=== PATIENT | female | born 1960 | race Caucasian/White ===

== ENCOUNTER 2023-09-23 13:37 | Outpatient (CLI) | payer BC | END 2023-09-23 23:59 | disposition home or self-care (01) | LOC: MRI 13:37 | PROVIDERS: ATTEND Podiatrist Foot & Ankle Surgery | DX: S91.012A Laceration without foreign body, left ankle, initial encounter (principal); M77.31 Calcaneal spur, right foot; M21.42 Flat foot [pes planus] (acquired), left foot; M19.072 Primary osteoarthritis, left ankle and foot; M25.772 Osteophyte, left ankle; M79.672 Pain in left foot; X58.XXXA Exposure to other specified factors, initial encounter; Y93.89 Activity, other specified; Y92.89 Other specified places as the place of occurrence of the external cause; Y99.8 Other external cause status | CPT/HCPCS: 73721 ==

== ENCOUNTER 2024-03-05 07:05 | Inpatient (IN) | payer BC, OTHER ==
[2024-02-27 15:14] LABS: BILIRUBIN,URINE NEGATIVE (Neg); CLARITY,URINE SLIGHTLY CLOUDY (Clear); COLOR,URINE YELLOW (Yellow); GLUCOSE, URINE NEGATIVE (Neg); KETONES,URINE NEGATIVE (Neg); LEUKOCYTE ESTERASE ,URINE NEGATIVE (Neg); NITRITES, URINE NEGATIVE (Neg); OCCULT BLOOD,URINE TRACE-INTACT (Neg); PH,URINE 5.5 (4.8-8.0); PROTEIN,URINE NEGATIVE (Neg); UROBILINOGEN,URINE 0.2 E.U/dL (0.2-1.0)
[2024-02-27 15:17] LABS: BASOPHILS % (AUTO) 0.5 % (0-1); EOSINOPHILS # (AUTO) 0.1 X10'3 (0-0.9); EOSINOPHILS % (AUTO) 1.7 % (0-6); LYMPHOCYTES # (AUTO) 2.1 X10'3 (1.1-4.8); LYMPHOCYTES % (AUTO) 25.8 % (21-51); MEAN CORPUSCULAR HEMOGLOBIN 28.4 PG (27.0-31.0); MEAN CORPUSCULAR HGB CONC 33.2 g/dL (33.0-36.5); MEAN CORPUSCULAR VOLUME 85.7 FL (78-98); MEAN PLATELET VOLUME 7.1 FL (7.4-10.4); MONOCYTES # (AUTO) 0.5 X10'3 (0-0.9); MONOCYTES % (AUTO) 6.6 % (2-12); NEUTROPHILS # (AUTO) 5.5 X10'3 (1.8-7.7); NEUTROPHILS % (AUTO) 65.4 % (42-75); PRE OP HEMATOCRIT 38.9 % (35.0-45.0); PRE OP HEMOGLOBIN 12.9 g/dL (12.0-16.0); PRE OP PLATELET COUNT 349 X10'3 (140-440); PRE OP WHITE BLOOD COUNT 8.3 10'3 (4.8-10.8); RED BLOOD COUNT 4.54 X10'6 (4.20-5.60); RED CELL DISTRIBUTION WIDTH 15.2 % (11.5-14.5)
[2024-02-27 15:27] LABS: UA COLLECTION TYPE CLN CATCH MIDSTREAM
[2024-02-27 15:28] LABS: ALBUMIN 3.4 G/DL (3.4-5.0); ALBUMIN/GLOBULIN RATIO 0.8 (1.1-1.5); ALKALINE PHOSPHATASE 91 IU/L (46-116); BLOOD UREA NITROGEN 20 MG/DL (7-18); BUN/CREATININE RATIO 26.3 (10.0-20.0); CHLORIDE 105 MMOL/L (99-107); CREATININE 0.76 MG/DL (0.40-0.90); PRE OP ALT 31 U/L (30-65); PRE OP ANION GAP 7 (8-16); PRE OP AST 31 U/L (10-37); PRE OP BILIRUB, TOTAL 0.3 MG/DL (0.0-1.0); PRE OP GLUCOSE 95 MG/DL (70-104); PRE OP POTASSIUM 4.3 MMOL/L (3.4-5.1); PRE OP SODIUM 142 MMOL/L (135-145); TOTAL CARBON DIOXIDE 30.1 MMOL/L (24-32); TOTAL PROTEIN 7.9 G/DL (6.4-8.2); eGFR 77 ML/MIN
[2024-02-27 15:28] LABS: MUCUS STRANDS FEW /LPF (Neg); SQUAMOUS EPITHELIAL CELL,UR MANY /LPF (FEW)
[2024-02-27 15:29] LABS: BACTERIA,URINE 1+ /HPF (Neg); RBC,URINE 0-2 /HPF (0-2); WBC,URINE 0-4 /HPF (0-4)
[2024-03-05] VITALS (31 sets, daily range): BP systolic 119–164; BP diastolic 67–94; PULSE 60–118; RESP 12–30; TEMP 96.7–98.6; O2SAT 88–98
[~2024-03-05] VITALS: Ht 162.6 cm; Wt 120.5 kg
[~2024-03-05 07:05] MED LIST: NO HOME MEDS
[2024-03-05] MEDS: famotidine 20mg tablet PO ONE (07:58)
[2024-03-05] MEDS: vancomycin 1,500 MG in NS 300ml IV soln IV ONE (07:58)
[2024-03-05] MEDS: ringers solution, lacted 1,000 ML IV SCH ×2 (07:58→16:42)
[2024-03-05] MEDS: scopolamine 1MG/72H patch 1 PATCH PATCH.TD.3 TD ONE (09:49)
[2024-03-05] MEDS ORDERED: sevoflurane 250ml liquid IH ONE (09:52)
[2024-03-05] MEDS ORDERED: midazolam 1 mg/ML 2ml injection ONE (10:06)
[2024-03-05] MEDS ORDERED: fentaNYL /PF 50mcg/ml 5ml ampule ONE (10:10)
[2024-03-05] MEDS ORDERED: hydrALAZINE 20mg/ml inj. IV PRN (10:40)
[2024-03-05] MEDS ORDERED: morphine 4 MG/ML inj SYRINge IV PRN (10:40)
[2024-03-05] MEDS ORDERED: labetalol 20mg/4ml (5mg/ml) syringe IV PRN (10:40)
[2024-03-05] MEDS ORDERED: LIDOcaine 2% (20mg/ml) 5ml vial ONE (10:46)
[2024-03-05] MEDS ORDERED: ROPIVAcaine 0.5% (5mg/ml) 30ml vial ONE (10:46)
[2024-03-05] MEDS ORDERED: ondansetron/PF 4mg/2ml inj ONE (10:46)
[2024-03-05] MEDS ORDERED: propofol inj 20 ML IV ONE (10:46)
[2024-03-05] MEDS ORDERED: 0.9 % SODIUM CHLORIDE 10 ML VIAL ONE ×2 (10:46)
[2024-03-05] MEDS ORDERED: ePHEDrine 50MG/ML INJ. ONE (10:47)
[2024-03-05] MEDS: bacitracin 15gm ointment TP ONE ×2 (12:45→16:41)
[2024-03-05] MEDS: HYDROmorphone/PF 0.2 MG/ML SYRINGE IV PRN ×2 (13:28→14:01)
[2024-03-05] MEDS ORDERED: naloxone 0.4 mg/ml inj IV PRN ×2 (13:30→15:00)
[2024-03-05] MEDS ORDERED: magnesium hydroxide 30ml (MOM) UD suspension PO PRN (13:30)
[2024-03-05] MEDS ORDERED: acetaminophen 325mg tablet PO PRN (13:30)
[2024-03-05] MEDS ORDERED: diphenhydrAMINE 25mg capsule PO PRN ×2 (13:30)
[2024-03-05] MEDS ORDERED: bisacodyl 10mg suppository rectal RC PRN (13:30)
[2024-03-05] MEDS ORDERED: ondansetron/PF 4mg/2ml inj IV PRN (13:30)
[2024-03-05] MEDS: morphine 2 MG/ML inj. syringe IV PRN (13:40)
[2024-03-05] MEDS: acetaminophen 1,000mg/100ml IV 100 ML IV ONE (13:41)
[2024-03-05] MEDS: ondansetron/PF 4mg/2ml inj IV PRN (13:46)
[2024-03-05] MEDS: HYDROcodone/acetaminophen 10/325mg tab PO PRN (14:18)
[2024-03-05] MEDS: HYDROmorph/NS 0.2 mg/ml PCA 100 ML IV SCH (15:50)
[2024-03-05] MEDS: BUPIVAcaine 2.5mg/ml inj 50ml vial (contains preservative) ONE (16:41)
[2024-03-05] MEDS: proCHLORperazine 10 MG/2 ml inj IV PRN (17:33)
[2024-03-05] MEDS: sennosides 8.6mg tablet PO SCH (21:00)
[2024-03-06 01:41] VITALS: BP 125/62; PULSE 79; TEMP 97.7; O2SAT 99
[2024-03-06 06:30] VITALS: BP 142/73; PULSE 70; RESP 17; TEMP 97.9; O2SAT 94
[2024-03-06 08:00] VITALS: RESP 16; O2SAT 99
[2024-03-06] MEDS: PCA WASTE DOCUMENTATION 1 MG ML MC PRN (08:58)
[2024-03-06 10:00] VITALS: BP 99/43; PULSE 64; RESP 16; TEMP 97.2; O2SAT 99
[2024-03-06] MEDS: HYDROcodone/acetaminophen 10/325mg tab PO PRN (13:50)
[2024-03-06 18:00] VITALS: BP 122/41; PULSE 57; RESP 16; TEMP 97.7; O2SAT 100
[2024-03-06 22:29] VITALS: BP 119/54; PULSE 68; RESP 18; TEMP 97.1; O2SAT 96
[2024-03-07] MEDS ORDERED: ketorolac trometh 15mg/ml vial 15 MG/ML ML IV ONE (04:20)
[2024-03-07] MEDS: HYDROmorphone 1 mg/ml syringe IV PRN (04:41)
[2024-03-07 06:00] VITALS: BP 118/62; PULSE 85; RESP 17; TEMP 98.1; O2SAT 97
[2024-03-07 08:00] VITALS: RESP 17; O2SAT 97
[2024-03-07 10:00] VITALS: BP 159/52; PULSE 67; RESP 18; TEMP 97.7; O2SAT 100
[2024-03-07 14:00] VITALS: BP 159/52; PULSE 67; RESP 18; TEMP 97.7; O2SAT 100
== END 2024-03-07 16:45 | disposition home or self-care (01) | DRG 494 ==
LOC: PAS 07:05 → EDSTATUS 12:15 → OBSVTOIN 13:31 → ORTHO 4S 13:31 → UNDOADMOB 16:51
PROVIDERS: ADMIT Podiatrist Foot & Ankle Surgery; ATTEND Podiatrist Foot & Ankle Surgery
PROC: 3E0T3BZ Introduction of Anesthetic Agent into Peripheral Nerves and Plexi, Percutaneous Approach (ICD-10-PCS; 2024-03-05)
PROC: 0SSG04Z Reposition Left Ankle Joint with Internal Fixation Device, Open Approach (ICD-10-PCS; principal; 2024-03-05 09:52)
PROC: 3E0U029 Introduction of Other Anti-infective into Joints, Open Approach (ICD-10-PCS; 2024-03-05 09:52)
DX: M19.072 Primary osteoarthritis, left ankle and foot (principal); M25.372 Other instability, left ankle; X58.XXXA Exposure to other specified factors, initial encounter; M21.42 Flat foot [pes planus] (acquired), left foot; S93.432A Sprain of tibiofibular ligament of left ankle, initial encounter; Y93.89 Activity, other specified; Y92.89 Other specified places as the place of occurrence of the external cause; Y99.8 Other external cause status; Z88.6 Allergy status to analgesic agent; Z88.0 Allergy status to penicillin; Z88.2 Allergy status to sulfonamides
CPT/HCPCS: Z7506; Z7508; 36415; 73620; 80053; 81001; 82948; 85025; 97116; 97161; 97530; A4215; A4615; A4618; A5200; A6223; A6253; A6449; A7000; C1713; G0378; J0131; J0735; J0780; J1100; J1170; J2250; J2270; J2405; J2704; J2795; J3010; J3370; J3490; J7030; J7120